=== PATIENT | male | born 1995 | race Caucasian/White ===

== ENCOUNTER 2017-02-18 20:52 | Emergency (ER) | payer OTHER ==
[2017-02-18 21:00] VITALS: BP 140/76
[2017-02-18] MEDS ORDERED: LIDOCAINE 1% 2 ML VIAL ONE (21:00)
--- NOTE | 2017-02-18 21:18 | ED Physician Documentation ---
PD HPI HEAD INJURY - Stated complaint Stated Complaint: NOSE LAC - Chief complaint Chief Complaint: Laceration - History obtained from History obtained from: Patient, Family - History of Present Illness Mechanism of head injury: Blow, Laceration Where head injury occurred: Work Timing - onset: How many hours ago (3) Location of injury: Front Associated symptoms: No: LOC, AMS, Amnesia, Nausea / vomiting Symptoms worsen with: Palpation Contributing factors: No: Anticoagulated Similar symptoms before: Has not had sx before Recently seen: Clinic - Additional information Additional information: Patient is a 21 year old male with no significant past medical history who is presenting to the emergency department for nasal laceration. patient [place] on a metal shelf. [place] Patient's commanding officer took a picture of and sent it to another doctor who stated the patient should come to the emergency department. Upon initial evaluation in the emergency department there was no active bleeding and the steri strip was in place. Review of Systems Constitutional: denies: Fever, Chills Eyes: denies: Loss of vision, Decreased vision Ears: denies: Ear pain, Drainage/discharge Nose: denies: Epistaxis Throat: denies: Dental pain / toothache, Oral lesions / sores Cardiac: denies: Chest pain / pressure GI: denies: Nausea, Vomiting : denies: Dysuria, Frequency, Hesitancy Skin: reports: Laceration (s) Neurologic: denies: Generalized weakness, Focal weakness PD PAST MEDICAL HISTORY - Past Medical History Past Medical History: No - Past Surgical History Past Surgical History: No - Present Medications Home Medications: Ambulatory Orders Medication Instructions Recorded Confirmed No Known Home Medications [No 02/18/17 02/18/17 Known Home Medications] - Allergies Allergies/Adverse Reactions: Allergies Allergy/AdvReac Type Severity Reaction Status Date / Time Penicillins Allergy Rash Verified 02/18/17 21:00 - Social History Does the pt smoke?: No Smoking Status: Never smoker Does the pt drink ETOH?: No Does the pt have substance abuse?: No - Immunizations Immunizations are current?: Yes - POLST Patient has POLST: No PD ED PE NORMAL - Vitals Vital signs reviewed: Yes - General General: Alert and oriented X 3, No acute distress - HEENT HEENT: PERRL, Ears normal, Moist mucous membranes - Neck Neck: Supple, no meningeal sign - Cardiac Cardiac: RRR, No murmur - Respiratory Respiratory: No respiratory distress, Clear bilaterally - Abdomen Abdomen: Soft, Non tender, Non distended - Derm Derm: Normal color - Extremities Extremities: No deformity, No tenderness to palpate - Neuro Neuro: Alert and oriented X 3, No motor deficit, No sensory deficit, Normal speech - Psych Psych: Normal mood, Normal affect PD ED PE EXPANDED - HEENT HEENT: Head injury (7mm laceration on bridge of patient's nose) Results - Vitals Vitals: Vital Signs - 24 hr 02/18/17 20:57 Temperature 36.8 C Heart Rate 86 Respiratory 17 Rate Blood Pressure 140/76 H O2 Saturation 99 Oxygen O2 Source Room air Procedures - Laceration (location) nasal bridge Length in cm: 1 Wound type: Linear Neurovascular status: Sensory intact, Vascular intact Anesthesia: Lidocaine 1% Wound Preparation: Chlorhexadine Skin layer closure: Size #-0 - enter number (6), Sutures - enter # (2) Other: Patient tolerated well, No complications, Neurovascular intact, Dressing applied, Tetanus UTD Complexity: Simple PD MEDICAL DECISION MAKING - ED course Complexity details: reviewed old records, reviewed results, re-evaluated patient , considered differential, d/w patient ED course: Patient was seen and examined at bedside. Patient was in no acute distress. Wound was repaired as described above. patient required no further work up and was stable for discharge with outpatient follow up. Departure - Departure Disposition: 01 Home, Self Care Clinical Impression: Laceration Condition: Good Instructions: ED Laceration Sure Close Follow-Up: primary,care provider [Other] - Within 1 week (follow up in 5 days for suture removal ) Comments: Your symptoms today were caused by a laceration. You will need to keep the area clean and dry. You may apply a topical antibiotic as necessary. You can take motrin or tylenol as needed for pain. You should monitor for signs of infection, (increased redness, swelling, discharge or fevers) and follow up with your doctor for that. Otherwise you should have the sutures removed in 5 days. You may return to the emergency department at any time for new, worsening or uncontrollable symptoms. Discharge Date/Time: 02/18/17 21:27
== END 2017-02-18 21:27 | disposition home or self-care (01) ==
LOC: ED 20:52
DX: S01.21XA Laceration without foreign body of nose, initial encounter (principal); W22.8XXA Striking against or struck by other objects, initial encounter; Y92.139 Unspecified place military base as the place of occurrence of the external cause; Y99.0 Civilian activity done for income or pay
CPT/HCPCS: 12011; 99282; 99283

== ENCOUNTER 2017-02-19 18:57 | Emergency (ER) | payer OTHER ==
--- NOTE | 2017-02-19 19:48 | ED Physician Documentation ---
PD HPI HEAD INJURY - Stated complaint Stated Complaint: HEAD INJURY - Chief complaint Chief Complaint: General - History obtained from History obtained from: Patient - History of Present Illness Mechanism of head injury: Blow Timing - onset: Yesterday Location of injury: Right, Front Associated symptoms: AMS (feels lightheaded and having pain to right frontal area. Not tender. Denies visual changes.), Nausea / vomiting (after injury and today nauseated still). No: LOC Symptoms worsen with: No: Palpation Contributing factors: No: Anticoagulated, Intoxicated Similar symptoms before: Has not had sx before (no prior concussive symptoms nor migraines.) Recently seen: Not recently seen Review of Systems Constitutional: denies: Fever, Chills Eyes: denies: Loss of vision, Decreased vision, Photophobia Nose: denies: Rhinorrhea / runny nose, Congestion Throat: denies: Sore throat Respiratory: denies: Cough GI: reports: Nausea, Vomiting. denies: Diarrhea : denies: Dysuria, Frequency Neurologic: denies: Focal weakness, Difficulty speaking, Near syncope PD PAST MEDICAL HISTORY - Past Medical History Past Medical History: No Neuro: None Endocrine/Autoimmune: None - Past Surgical History Past Surgical History: No - Present Medications Home Medications: Ambulatory Orders Medication Instructions Recorded Confirmed Dexamethasone [Decadron] 4 mg PO DAILY #5 tablet 02/19/17 Naproxen 375 mg PO BID #20 tablet 02/19/17 Ondansetron Odt [Zofran] 4 mg TL Q6H PRN #15 tablet 02/19/17 - Allergies Allergies/Adverse Reactions: Allergies Allergy/AdvReac Type Severity Reaction Status Date / Time Penicillins Allergy Rash Verified 02/19/17 19:10 - Social History Does the pt smoke?: No Smoking Status: Never smoker Does the pt drink ETOH?: No Does the pt have substance abuse?: No - Immunizations Immunizations are current?: Yes - POLST Patient has POLST: No PD ED PE NORMAL - Vitals Vital signs reviewed: Yes - General General: Alert and oriented X 3, No acute distress, Well developed/nourished - HEENT HEENT: PERRL, EOMI, Ears normal, Moist mucous membranes, Pharynx benign, Other ( slight swelling without tenderness right frontal area. 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, No motor deficit, No sensory deficit, Normal speech, Other Results - Vitals Vitals: Oxygen O2 Source Room air PD MEDICAL DECISION MAKING - ED course Complexity details: reviewed results, considered differential, d/w patient Departure - Departure Disposition: 01 Home, Self Care Clinical Impression: Concussion Qualifiers: Encounter type: initial encounter Loss of consciousness presence/duration: without LOC Qualified Code(s): S06.0X0A - Concussion without loss of consciousness, initial encounter Condition: Stable Record reviewed to determine appropriate education?: Yes Instructions: ED Concussion Follow-Up: PHILIP BREWER [Primary Care Provider] - Prescriptions: Dexamethasone [Decadron] 4 mg PO DAILY #5 tablet Naproxen 375 mg PO BID #20 tablet Ondansetron Odt [Zofran] 4 mg TL Q6H PRN #15 tablet PRN Reason: Nausea / Vomiting Comments: Drink lots of fluids. Off work for 2-3 days due to symptoms, but light activity such as walks are okay. Complete bedrest probably is actually worse. No vigorous activity/sports for a few days. Recheck with PCP in 2-3 days. Naproxen twice daily for a week. Decadron for inflammation for 5 days. Zofran if need for nausea. Seems like mild concussive symptoms and should improve over days to a week or so. Alternatively, it could be that the injury triggered a migraine headache and so see if the headache/nausea/light sensitivity parts ever recur and if so, could represent a migraine pattern (this is much less likely than just mild concussion). Forms: Activity restrictions Discharge Date/Time: 02/19/17 21:18
[2017-02-19] MEDS ORDERED: HYDROcod/ACETAM 5/325 MG TABLET PO STA (20:04)
[2017-02-19] MEDS ORDERED: DEXAMETHASONE 10 MG/ML VIAL PO STA (20:04)
[2017-02-19] MEDS ORDERED: ONDANSETRON ODT 4 MG TABLET TL STA (20:04)
[2017-02-19] MEDS ORDERED: HYDROcod/ACETAM 5/325 MG TABLET ONE (20:17)
[2017-02-19] MEDS ORDERED: DEXAMETHASONE 10 MG/ML VIAL ONE (20:18)
[2017-02-19] MEDS ORDERED: ONDANSETRON ODT 4 MG TABLET ONE (20:18)
[2017-02-19] MEDS ORDERED: CHERRY SYRUP 10 ML UDC PO ONE (20:19)
--- NOTE | 2017-02-19 20:31 | CT Preliminary Report ---
Exam: CT Head W/O IMPRESSION: Negative nonenhanced head CT. [facility] SITE ID: [id number]
--- NOTE | 2017-02-19 20:34 | CT Report ---
EXAM: CT HEAD EXAM DATE: 02/19/2017 08:18 PM. CLINICAL HISTORY: Struck nose/front head yesterday; [place], confused. COMPARISON: None. TECHNIQUE: Multiaxial CT images were obtained from the foramen magnum to the vertex. IV contrast: Non e. Reformats: Coronal. In accordance with CT protocol optimization, one or more of the following dose reduction techniques w ere utilized for this exam: automated exposure control, adjustment of mA and/or KV based on patient s ize, or use of iterative reconstructive technique. FINDINGS: Parenchyma: No intraparenchymal hemorrhage. No evidence of mass, midline shift, or CT findings of inf arction. Edwards-white differentiation is distinct. Extraaxial Spaces: No abnormal subdural or epidural fluid collection. Ventricles: Normal in size and position. Sinuses: Imaged paranasal sinuses, orbits, and mastoids show no significant abnormality. Bones: No evidence of fracture or calvarial defect. Other: None. IMPRESSION: Negative nonenhanced head CT. [facility] Referring Provider Line: [phone] SITE ID: [id number]
[2017-02-19] MEDS ORDERED: ONDANSETRON ODT 4 MG Prepack 2 TL PRN (20:54)
[2017-02-19 21:02] VITALS: BP 117/70
[2017-02-19] MEDS ORDERED: ONDANSETRON ODT 4 MG Prepack 2 TL ONE (21:07)
== END 2017-02-19 21:18 | disposition home or self-care (01) ==
LOC: ED 18:57
DX: S06.0X0A Concussion without loss of consciousness, initial encounter (principal); W22.8XXA Striking against or struck by other objects, initial encounter
CPT/HCPCS: 70450; 99283; A9270; Q0162

== ENCOUNTER 2017-02-24 08:12 | Outpatient (CLI) | payer OTHER | END 2017-02-24 08:13 | disposition home or self-care (01) | LOC: DI 08:12 | PROVIDERS: ATTEND Physician Assistant | DX: R01.1 Cardiac murmur, unspecified (principal); R55 Syncope and collapse | CPT/HCPCS: 93306 ==

== ENCOUNTER 2017-02-24 16:02 | Emergency (ER) | payer OTHER ==
--- NOTE | 2017-02-24 16:34 | ED Physician Documentation ---
PD HPI ALTERED MENTAL STATUS - Stated complaint Stated Complaint: AMS - Chief complaint Chief Complaint: Neuro - History obtained from History obtained from: Patient, EMS - History of Present Illness Timing - onset: Today Timing - duration: Hours (1) Timing - details: Abrupt onset Quality / character: Confused, Disoriented, Memory Loss Associated symptoms: Syncope (states doesn't know what happened. Thinks he struck his head). No: Fever, Headache, Stiff neck, Dyspnea, Cough, NVD, Urinary sx, General weakness, Focal weakness, Seizure activity Contributing factors: No: Anticoagulated, Diabetic, Cancer, COPD, New medication , Recent med change, Recent illness, Recent injury, Intoxicated, Substance abuse , Known psych illness, Known dementia [place] status: Disoriented, Diminished alertness (drowsy), Other (oriented to person and place) Similar symptoms before: Diagnosis (concussion) Recently seen: Emergency Dept (x2 for head injury and has followed up with his [facility] PCP.) Review of Systems Ten Systems: 10 systems reviewed and negative Constitutional: denies: Fever, Chills Nose: denies: Rhinorrhea / runny nose, Congestion Throat: denies: Sore throat Cardiac: denies: Chest pain / pressure Respiratory: denies: Cough, Wheezing GI: denies: Abdominal Pain, Nausea, Vomiting, Diarrhea Skin: denies: Rash Musculoskeletal: reports: Neck pain Neurologic: reports: Syncope (states doesn't remember what happened.), Headache , Head injury, LOC PD PAST MEDICAL HISTORY - Past Medical History Past Medical History: No - Past Surgical History Past Surgical History: No - Present Medications Home Medications: Ambulatory Orders Medication Instructions Recorded Confirmed Dexamethasone [Decadron] 4 mg PO DAILY #5 tablet 02/19/17 Naproxen 375 mg PO BID #20 tablet 02/19/17 Ondansetron Odt [Zofran] 4 mg TL Q6H PRN #15 tablet 02/19/17 - Allergies Allergies/Adverse Reactions: Allergies Allergy/AdvReac Type Severity Reaction Status Date / Time Penicillins Allergy Rash Verified 02/19/17 19:10 - Social History Does the pt smoke?: No Smoking Status: Never smoker Does the pt drink ETOH?: No Does the pt have substance abuse?: No - Immunizations Immunizations are current?: Yes - POLST Patient has POLST: No PD ED PE NORMAL - Vitals Vital signs reviewed: Yes - General General: Alert and oriented X 3, No acute distress, Well developed/nourished - HEENT HEENT: PERRL, Ears normal, Moist mucous membranes, Pharynx benign, Other ( abrasion to the forehead, but otherwise normal.) - Neck Neck: Supple, no meningeal sign, Other (Tender to palpation mid and upper C- spine, midline.) - Cardiac Cardiac: RRR, Strong equal pulses - Respiratory Respiratory: No respiratory distress, Clear bilaterally - Abdomen Abdomen: Soft, Non tender, Non distended - Back Back: No spinal TTP - Derm Derm: Warm and dry, No rash - 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, No motor deficit, No sensory deficit, Normal speech, Other (drowsy but arousable) - Psych Psych: Normal mood, Normal affect Results - Vitals Vitals: Vital Signs - 24 hr 02/24/17 02/24/17 16:04 18:03 Temperature 36.5 C Heart Rate 84 74 Respiratory 14 14 Rate Blood Pressure 159/82 H 135/60 H O2 Saturation 98 98 Oxygen O2 Source Room air - EKG (time done) 1644 Rate: Rate (enter#) (72) Rhythm: NSR [place]: Normal Intervals: Normal [place] Ischemia: ST elevation c/w repol Computer interpretation: Agree with computer - Labs Labs: Laboratory Tests 02/24/17 02/24/17 02/24/17 16:36 16:36 17:11 WBC 8.7 RBC 5.06 Hgb 14.4 Hct 44.2 MCV 87.4 MCH 28.5 MCHC 32.6 RDW 13.5 Plt Count 302 MPV 8.5 Neut # 8.0 H Lymph # 0.6 L [place] # 0.1 Eos # 0.0 Baso # 0.0 Absolute Nucleated RBC 0.00 Nucleated RBCs 0.0 Manual Slide Review Indicated WBC Morphology NORMAL APPEARANCE Platelet Estimate NORMAL (130-450,000) Platelet Morphology 1+ LARGE PLATELETS RBC Morph Micro Appear NORMAL APPEARANCE Sodium 141 Potassium 4.3 Chloride 108 Carbon Dioxide 26 Anion Gap 7.0 BUN 12 Creatinine 0.9 Estimated GFR (MDRD) 109 Glucose 132 H Calcium 10.0 Total Bilirubin 0.7 AST 22 ALT 17 Alkaline Phosphatase 98 Total Protein 7.9 Albumin 5.3 Globulin 2.6 Albumin/Globulin Ratio 2.0 Lipase 28 Urine Color YELLOW Urine Clarity CLEAR Urine pH 8.0 H Ur Specific [place] 1.015 Urine Protein NEGATIVE Urine Glucose (UA) NEGATIVE Urine Ketones NEGATIVE Urine Occult Blood NEGATIVE Urine Nitrite NEGATIVE Urine Bilirubin NEGATIVE Urine Urobilinogen 1 (NORMAL) Ur Leukocyte Esterase NEGATIVE Ur Microscopic Review NOT INDICATED Urine Culture Comments NOT INDICATED Salicylates < 6.0 Urine Opiates Screen NEGATIVE Ur Oxycodone Screen NEGATIVE Urine Methadone Screen NEGATIVE Ur Propoxyphene Screen NEGATIVE Acetaminophen < 10 L Ur Barbiturates Screen NEGATIVE Ur Tricyclics Screen NEGATIVE Ur Phencyclidine Scrn NEGATIVE Ur Amphetamine Screen NEGATIVE U Methamphetamines Scrn NEGATIVE U Benzodiazepines Scrn NEGATIVE Urine Cocaine Screen NEGATIVE U Cannabinoids Screen NEGATIVE Ethyl Alcohol < 5.0 - Rads (name of study) head CT Radiology: Prelim report reviewed, EMP read contemporaneously, See rad report ( normal) c-spine CT Radiology: Prelim report reviewed, EMP read contemporaneously, See rad report ( no fracture) PD MEDICAL DECISION MAKING - ED course Complexity details: reviewed old records, reviewed results, re-evaluated patient , considered differential, d/w patient ED course: Patient is a 21-year-old male who presents to the emergency department after possible syncopal event or possible head injury with concussion today. No acute findings on EKG. Is being worked up by his primary care provider for syncope. No acute findings on telemetry. Normal head CT, normal labs, normal cervical spine CT. Mental status returned to baseline on the emergency department. We will have him follow-up with his doctor for further evaluation and care. No evidence of meningitis, encephalitis. Patient counseled regarding signs and symptoms for which I believe and urgent re-evaluation would be necessary. Patient with good understanding of and agreement to plan and is comfortable going home at this time This document was made in part using voice recognition software. While efforts are made to proofread this document, sound alike and grammatical errors may occur. Departure - Departure Disposition: 01 Home, Self Care Clinical Impression: Concussion Qualifiers: Encounter type: initial encounter Loss of consciousness presence/duration: with LOC of unspecified duration Qualified Code(s): S06.0X9A - Concussion with loss of consciousness of unspecified duration, initial encounter Condition: Good Instructions: ED Head Injury Closed Follow-Up: your,doctor in 3 days [Other] Comments: Return if you worsen. Your CT scans, labs and EKG are normal today. Discharge Date/Time: 02/24/17 18:04
[2017-02-24 16:50] LABS: BASOPHILS % (AUTO) 0.2 %; EOSINOPHILS % (AUTO) 0.1 %; HCT - HEMATOCRIT 44.2 % (42.0-52.0); HGB - HEMOGLOBIN 14.4 g/dL (14.0-18.0); LYMPHOCYTES # (AUTO) 0.6 10^3/uL (1.5-3.5); LYMPHOCYTES % (AUTO) 6.7 %; MEAN CORPUSCULAR HEMOGLOBIN 28.5 pg (27.0-31.0); MEAN CORPUSCULAR HGB CONC 32.6 g/dL (32.0-36.0); MEAN CORPUSCULAR VOLUME 87.4 fL (80.0-94.0); MEAN PLATELET VOLUME 8.5 fL (7.4-11.4); MONOCYTES # (AUTO) 0.1 10^3/uL (0.0-1.0); MONOCYTES % (AUTO) 1.3 %; NEUTROPHILS % (AUTO) 91.7 %; RED BLOOD COUNT 5.06 10^6/uL (4.70-6.10); RED CELL DISTRIBUTION WIDTH 13.5 % (12.0-15.0); UNCORRECTED WHITE BLOOD COUNT 8.7 x10^3/uL; WHITE BLOOD COUNT 8.7 x10^3/uL (4.8-10.8)
[2017-02-24 17:07] LABS: BILIRUBIN,TOTAL 0.7 mg/dL (0.2-1.0); BUN - BLOOD UREA NITROGEN 12 mg/dL (6-20); CARBON DIOXIDE - CO2 26 mmol/L (21-32); CHLORIDE 108 mmol/L (101-111); CREATININE 0.9 mg/dL (0.6-1.2); GFR - MDRD 109 (>89); GLUCOSE 132 mg/dL (70-100); LIPASE 28 U/L (22-51); POTASSIUM 4.3 mmol/L (3.5-5.0); SALICYLATE < 6.0 mg/dL; SODIUM 141 mmol/L (135-145); TOTAL PROTEIN 7.9 g/dL (6.7-8.2)
[2017-02-24 17:09] LABS: ACETAMINOPHEN < 10 ug/mL (10-30)
[2017-02-24 17:24] LABS: BILIRUBIN,URINE NEGATIVE (NEGATIVE)
[2017-02-24 17:25] LABS: UA CHARGE (STRIP ONLY) YES; UR CULTURE IF IND NOT INDICATED
--- NOTE | 2017-02-24 17:30 | CT Preliminary Report ---
Exam: CT Head W/O IMPRESSION: Normal head CT. [facility] SITE ID: [id number]
--- NOTE | 2017-02-24 17:32 | CT Preliminary Report ---
Exam: CT Cervical Spine W/O IMPRESSION: Normal cervical spine CT. [facility] SITE ID: [id number]
--- NOTE | 2017-02-24 17:33 | CT Report ---
EXAM: CT HEAD EXAM DATE: 02/24/2017 05:06 PM. CLINICAL HISTORY: Fall. Altered level of consciousness. COMPARISON: 02/19/2017. TECHNIQUE: Multiaxial CT images were obtained from the foramen magnum to the vertex. IV contrast: Non e. Reformats: Coronal. In accordance with CT protocol optimization, one or more of the following dose reduction techniques w ere utilized for this exam: automated exposure control, adjustment of mA and/or KV based on patient s ize, or use of iterative reconstructive technique. FINDINGS: Parenchyma: No intraparenchymal hemorrhage. No evidence of mass, midline shift, or CT findings of inf arction. Edwards-white differentiation is distinct. Extraaxial Spaces: Normal for age. No subdural or epidural collections identified. Ventricles: Normal in size and position. Sinuses: Imaged paranasal sinuses, orbits, and mastoids show no significant abnormality. Bones: No evidence of fracture or calvarial defect. Other: None. IMPRESSION: Normal head CT. [facility] Referring Provider Line: [phone] SITE ID: [id number]
--- NOTE | 2017-02-24 17:35 | CT Report ---
EXAM: CT CERVICAL SPINE WITHOUT CONTRAST DATE: 02/24/2017 05:06 PM HISTORY: Fall. Neck pain. COMPARISONS: None. TECHNIQUE: Thin-section axial images were acquired of the cervical spine without contrast. Post-proce ssing: Coronal and sagittal reformats. Other: None. In accordance with CT protocol optimization, one or more of the following dose reduction techniques w ere utilized for this exam: automated exposure control, adjustment of mA and/or KV based on patient s ize, or use of iterative reconstructive technique. FINDINGS: Alignment: Normal. No scoliosis or spondylolisthesis. Bones: No fracture or bone lesion. Interspace Levels/Facets: No disk space narrowing or facet malalignment. Other: The paravertebral and prevertebral soft tissues are normal. The lung apices are clear. IMPRESSION: Normal cervical spine CT. [facility] Referring Provider Line: [phone] SITE ID: [id number]
[2017-02-24 17:56] LABS: PLATELET MORPHOLOGY 1+ LARGE PLATELETS (NORMAL)
[2017-02-24 17:57] LABS: PLATELET ESTIMATE, MANUAL NORMAL (130-450,000) (NORMAL); WBC MORPHOLOGY (MULTIPLE) NORMAL APPEARANCE (NORMAL)
[2017-02-24 18:04] VITALS: BP 135/60
== END 2017-02-24 18:04 | disposition home or self-care (01) ==
LOC: EDUNIT# → ED 16:02
DX: S06.0X9A Concussion with loss of consciousness of unspecified duration, initial encounter (principal); S00.81XA Abrasion of other part of head, initial encounter; M54.2 Cervicalgia; W19.XXXA Unspecified fall, initial encounter; R55 Syncope and collapse; R01.1 Cardiac murmur, unspecified
CPT/HCPCS: 36415; 70450; 72125; 80053; 80306; 80307; 80320; 80329; 81001; 81003; 83690; 85025; 87086; 93005; 93010; 93306; 99284